=== PATIENT | male | born 1970 | race Caucasian/White ===

== ENCOUNTER 2017-09-23 14:26 | Emergency (ER) | payer OTHER ==
[2017-09-23 14:37] VITALS: BP 123/77; PULSE 67; RESP 18; TEMP 97.2
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
== END 2017-09-23 15:00 | disposition home or self-care (01) ==
LOC: EC 14:26
DX: S46.919A Strain of unspecified muscle, fascia and tendon at shoulder and upper arm level, unspecified arm, initial encounter (principal); V89.2XXA Person injured in unspecified motor-vehicle accident, traffic, initial encounter; Y99.0 Civilian activity done for income or pay
CPT/HCPCS: 99283